=== PATIENT | female | born 1970 | race Caucasian/White ===

== ENCOUNTER 2018-07-22 13:02 | Outpatient (CLI) | payer OTHER ==
--- NOTE | 2018-07-29 16:20 | MMO ---
Bilateral MAMMO Bilat Screen [facility]. CLINICAL HISTORY: Patient is 47 years old and is seen for screening. The patient has no family history of breast cancer. The patient has no personal history of cancer. VIEWS: The views performed were: bilateral craniocaudal with tomosynthesis and bilateral mediolateral oblique with tomosynthesis. FILMS COMPARED: The present examination has been compared to a prior imaging study performed at [facility] on 04/19/2016. MAMMOGRAM FINDINGS: There are scattered fibroglandular densities. There are no suspicious masses, calcifications or areas of architectural distortion. There are benign appearing calcifications in both breasts. There are no suspicious masses, suspicious calcifications, or new areas of architectural distortion. IMPRESSION: THERE IS NO MAMMOGRAPHIC EVIDENCE OF MALIGNANCY. A ROUTINE FOLLOW-UP MAMMOGRAM IN 1 YEAR IS RECOMMENDED. THE RESULTS OF THIS EXAM WERE SENT TO THE PATIENT. ACR BI-RADS Category 2 - Benign finding MAMMOGRAPHY NOTE: 1. A negative mammogram report should not delay a biopsy if a dominant of clinically suspicious mass is present. 2. Approximately 10% to 15% of breast cancers are not detected by mammography. 3. Adenosis and dense breasts may obscure an underlying neoplasm.
== END 2018-07-22 13:03 | disposition home or self-care (01) ==
LOC: BICMAMMO 13:02
PROVIDERS: ATTEND Family Medicine
DX: Z12.31 Encounter for screening mammogram for malignant neoplasm of breast (principal)
CPT/HCPCS: 77063; 77067

== ENCOUNTER 2019-06-23 14:10 | Outpatient (CLI) | payer OTHER ==
--- NOTE | 2019-06-24 09:30 | CT ---
CT OF RIGHT FOOT PERFORMED WITHOUT CONTRAST ENHANCEMENT: HISTORY: Right foot pain has gotten worse. The pain is on the top of the foot and radiates to the toes. FINDINGS: Some minimal anterior spur formation of the tibia. There is no ankle joint space narrowing. There i s a prominent spur at the plantar fascia insertion. In the mid foot region, specifically at the level of the base of the metatarsals, are marked arthriti c changes. Prominent subchondral cystic change and joint space narrowing at the level at the base of the 2nd and 3rd metatarsals. Lesser changes are seen of the medial cuneiform and base of 4th metata rsal. Bones do not appear demineralized. The 1st metatarsophalangeal joint is normal in appearance. I do not see any signs for any soft tissue calcifications that would suggest gout. 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 Significant joint space narrowing. Prominent subc hondral cystic change. The possibility that this represents some type of inflammatory arthropathy sh ould be considered; however, I do not see any other features that would suggest an entity such as gou t. The 1st metatarsophalangeal joint appears fairly normal. POS: MARSHA
== END 2019-06-23 14:11 | disposition home or self-care (01) ==
LOC: BICCT 14:10
PROVIDERS: ATTEND Orthopaedic Surgery
DX: M19.071 Primary osteoarthritis, right ankle and foot (principal)

== ENCOUNTER 2019-07-24 10:25 | Outpatient (CLI) | payer OTHER ==
--- NOTE | 2019-07-24 13:30 | MMO ---
Bilateral MAMMO Bilat Screen [facility]. CLINICAL HISTORY: Patient is 48 years old and is seen for screening. The patient has no family history of breast cancer. The patient has no personal history of cancer. VIEWS: The views performed were: bilateral craniocaudal with tomosynthesis and bilateral mediolateral oblique with tomosynthesis. FILMS COMPARED: The present examination has been compared to prior imaging studies performed at [facility] on 07/22/2018, and at [facility] on 04/19/2016. This study has been interpreted with the assistance of computer-aided detection. MAMMOGRAM FINDINGS: There are scattered fibroglandular densities. Benign calcifications are noted bilaterally. There are no suspicious masses, suspicious calcifications, or new areas of architectural distortion. IMPRESSION: THERE IS NO MAMMOGRAPHIC EVIDENCE OF MALIGNANCY. A ROUTINE FOLLOW-UP MAMMOGRAM IN 1 YEAR IS RECOMMENDED. THE RESULTS OF THIS EXAM WERE SENT TO THE PATIENT. ACR BI-RADS Category 2 - Benign finding MAMMOGRAPHY NOTE: 1. A negative mammogram report should not delay a biopsy if a dominant of clinically suspicious mass is present. 2. Approximately 10% to 15% of breast cancers are not detected by mammography. 3. Adenosis and dense breasts may obscure an underlying neoplasm. Reported by: BRITTON GUILLEN MD Electonically Signed: [id number]
== END 2019-07-24 10:26 | disposition home or self-care (01) ==
LOC: BICMAMMO 10:25
PROVIDERS: ATTEND Family Medicine
DX: Z12.31 Encounter for screening mammogram for malignant neoplasm of breast (principal)
CPT/HCPCS: 77063; 77067

== ENCOUNTER 2024-02-24 10:42 | Emergency (ER) | payer SELFPAY ==
[2024-02-24] MEDS ORDERED: Iopamidol-370 76% 500 ML MDV (1 ML CHARGE) ONE (11:12)
[2024-02-24 11:21] LABS: Bacteria/HPF None Seen HPF (None Seen); Bilirubin Negative (Negative); Blood, Urine Negative (Negative); CAUTI Indications for Culture Pelvic or flank pain; Clarity Clear (Clear); Glucose, Urine (Dipstick) Normal (Negative); Ketone, Urine Negative (Negative); Leukocyte Negative Leu/uL (Negative); Nitrite Negative (Negative); Protein, Urine (Dipstick) Negative (Neg-Trace); RBC/HPF 0-3 HPF (0-3); Specific Gravity, Urine 1.014 (1.002-1.036); Squamous Epithelial 0-3 HPF (0-3); Urobilinogen Normal mg/dL (Less than 2); WBC/HPF None Seen HPF (0-3)
[2024-02-24 11:25] LABS: Urine Culture Reflex No No
[2024-02-24 11:33] LABS: #Basophils 0.04 10x3/uL (0.0-0.2); %Basophils 0.5 % (0.0-1.0); %Eosinophils 1.9 % (0.0-10.0); %Lymphocytes 29.5 % (21.0-51.0); %Monocytes 7.5 % (0.0-10.0); %Neutrophils 60.5 % (42.0-75.0); Hematocrit 40.5 % (36.0-47.0); Hemoglobin 13.7 g/dL (12.0-16.0); Mean Corpuscular HGB CONC 33.8 g/dL (32.0-36.0); Mean Corpuscular Hemoglobin 30.9 pg (27.0-31.0); Mean Corpuscular Volume 91.4 fL (78.0-98.0); Mean Platelet Volume 9.3 fL (7.4-10.4); Platelet Count 283 10x3/uL (130-400); RBC Distribution Width 12.7 % (11.5-14.5); Red Blood Cell (RBC) Count 4.43 mill/uL (4.20-5.40)
[2024-02-24 11:54] LABS: ALT (SGPT) 16 U/L (8-55); AST (SGOT) 15 U/L (5-34); Albumin 3.7 g/dL (3.5-5.0); Alkaline Phosphatase 78 U/L (40-110); Anion Gap 12 mmol/L (10-20); BUN (Urea Nitrogen) 13 mg/dL (9.8-20.1); Bilirubin, Total 0.4 mg/dL (0.2-1.2); Calc. Creatinine Clearance 0 mL/min (70-130); Calcium 9.2 mg/dL (7.8-10.44); Carbon Dioxide 25 mmol/L (22-29); Chloride 109 mmol/L (98-107); Estimated GFR 105; Globulin 3.6 g/dL (2.4-3.5); Glucose 96 mg/dL (70-105); Lipase 34 U/L (8-78); Potassium 4.5 mmol/L (3.5-5.1); Protein, Total 7.3 g/dL (6.0-8.3); Sodium 141 mmol/L (136-145)
[2024-02-24] MEDS ORDERED: Ketorolac Tromethamine 30 MG (1 mL) VIAL ONE (12:51)
== END 2024-02-24 14:12 | disposition home or self-care (01) ==
LOC: ERS 10:42
DX: K59.00 Constipation, unspecified (principal); R10.31 Right lower quadrant pain; Z55.6 Problems related to health literacy
CPT/HCPCS: 36415; 74177; 80053; 81001; 83690; 85025; 96374; J1885; Q9967